=== PATIENT | male | born 2000 | race Caucasian/White ===

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

== ENCOUNTER 2022-08-28 13:03 | Emergency (ER) | payer OTHER ==
--- NOTE | 2022-08-28 13:15 | NUR ---
CALLED X 1. NO SHOW. Addendum: 08/28/22 at 1344 by [facility] PATIENT LEFT WITHOUT BEING SEEN BY DR. DR MORENO. NO FURTHER CARE PROVIDED FOR PATIENT.
--- NOTE | 2022-08-28 13:43 | NUR ---
CALLED [phone]. PT IS AT HOME. HE STATED HE DOES NOT WANT TO COME TO ER THIS TIME.
== END 2022-08-28 13:15 | disposition left against medical advice (07) ==
LOC: MED 13:03
DX: R07.9 Chest pain, unspecified (principal); Z53.21 Procedure and treatment not carried out due to patient leaving prior to being seen by health care provider

== ENCOUNTER 2022-08-28 16:01 | Emergency (ER) | payer OTHER ==
[~2022-08-28] VITALS: Ht 182.9 cm; Wt 112.5 kg
[2022-08-28 16:10] VITALS: BP 140/71
--- NOTE | 2022-08-28 16:22 | NUR ---
COVID, FLU SWABS DONE.
[2022-08-28] MEDS ORDERED: KETOROLAC 15 MG/ML VIAL IM ONE ×2 (18:30→20:55)
--- NOTE | 2022-08-28 18:51 | NUR ---
CALLED X1. NO SHOW. Addendum: 08/28/22 at 1928 by [facility] Amendment undone in EDM - 08/28/22 at 1929 by [facility] PATIENT ELOPED FROM FACILITY. DISCHARGE INSTRUCTIONS NOT GIVEN TO PATIENT. DR. DUNN NOTIFIED. Addendum: 08/28/22 at 1929 by [facility] PATIENT ELOPED FROM FACILITY. DISCHARGE INSTRUCTIONS NOT GIVEN TO PATIENT. DR. DUNN NOTIFIED.
[2022-08-28 21:46] VITALS: BP 140/71
--- NOTE | 2022-08-28 21:46 | NUR ---
Patient discharged with v/s stable. Written and verbal after care instructions given and explained. Patient verbalized understanding. Ambulatory with steady gait. All questions addressed prior to discharge. Advised to follow up with PMD.
== END 2022-08-28 18:51 | disposition home or self-care (01) ==
LOC: MED 16:01
DX: S29.011A Strain of muscle and tendon of front wall of thorax, initial encounter (principal); Z20.822 Contact with and (suspected) exposure to COVID-19; R05.9 Cough, unspecified; X50.0XXA Overexertion from strenuous movement or load, initial encounter; Y93.89 Activity, other specified; Y92.89 Other specified places as the place of occurrence of the external cause; Y99.8 Other external cause status
CPT/HCPCS: 87426; 87804; 93005; 96372; 99284; J1885

== ENCOUNTER 2022-10-23 22:25 | Emergency (ER) | payer OTHER ==
[~2022-10-23] VITALS: Ht 182.9 cm; Wt 108.9 kg
[2022-10-23 22:38] VITALS: BP 134/66
--- NOTE | 2022-10-23 22:59 | NUR ---
PT AMBULATED TO BED #5
[2022-10-23] MEDS ORDERED: DEXAMETHASONE 10 MG/ML VIAL IVP ONE (23:10)
[2022-10-23] MEDS ORDERED: FAMOTIDINE 20 MG/2 ML VIAL IVP ONE (23:10)
[2022-10-23] MEDS ORDERED: diphenhydrAMINE 50 MG/ML VIAL IVP ONE (23:10)
[2022-10-23 23:20] LABS: BASOPHILS # (AUTO) 0.1 K/uL (0.00-0.22); BASOPHILS % (AUTO) 1.2 % (0.0-2.0); EOSINOPHILS % (AUTO) 0.2 % (0.0-4.0); HEMATOCRIT 41.2 % (36-52); LYMPHOCYTES # (AUTO) 1.7 K/uL (2.0-11.5); LYMPHOCYTES % (AUTO) 23.8 % (20.5-51.1); MEAN CORPUSCULAR HEMOGLOBIN 31 pg (27-31); MEAN CORPUSCULAR HGB CONC 36 g/dL (33-37); MEAN CORPUSCULAR VOLUME 84.4 fL (80-94); MONOCYTES # (AUTO) 1.2 K/uL (0.8-1.0); MONOCYTES % (AUTO) 16.8 % (1.7-9.3); NEUTROPHILS # (AUTO) 4.1 K/uL (1.8-7.7); PLATELET COUNT (AUTO) 150 K/uL (140-450); RED BLOOD CELL COUNT(AUTO) 4.88 MIL/uL (4.20-6.10); RED CELL DISTRIBUTION WIDTH 12.8 % (11.6-13.7); WHITE BLOOD COUNT (AUTO) 7.1 K/uL (4.5-11.0)
[2022-10-24 00:01] LABS: ALBUMIN 4.6 g/dL (3.4-5.0); ANION GAP 14.8 (8-16); ASPARTATE AMINOTRANSFERASE 51 U/L (15-37); CARBON DIOXIDE 26.1 mmol/L (21-32); CHLORIDE 100 mmol/L (98-107); GFR ARICAN-AMERICAN 123 mL/min (>90); GLUCOSE 106 mg/dL (74-106); MAGNESIUM 2.2 mg/dL (1.8-2.4); POTASSIUM 3.9 mmol/L (3.5-5.1); SODIUM SERUM 137 mmol/L (136-145); TOTAL BILIRUBIN 0.8 mg/dL (0.0-1.0); UREA NITROGEN, BLOOD 15 mg/dL (7-18)
[2022-10-24 01:39] VITALS: BP 143/88
== END 2022-10-24 01:39 | disposition home or self-care (01) ==
LOC: MED 22:25
DX: R07.9 Chest pain, unspecified (principal); R21 Rash and other nonspecific skin eruption
CPT/HCPCS: 36415; 71045; 80053; 83735; 84484; 85025; 86592; 93005; 96374; 96375; 99284; J1100; J1200; J3490; Q0092